=== PATIENT | female | born 1995 | race Two or more races ===

== ENCOUNTER 2019-02-23 13:28 | Emergency (ER) | payer SELFPAY ==
[2019-02-23 13:40] VITALS: BP 121/70; PULSE 71; TEMP 98.5; BMI 31.1
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
== END 2019-02-23 14:03 | disposition home or self-care (01) ==
LOC: JERFT 13:28
DX: T14.8XXA Other injury of unspecified body region, initial encounter (principal); Y04.2XXA Assault by strike against or bumped into by another person, initial encounter; Y93.89 Activity, other specified; Y92.810 Car as the place of occurrence of the external cause; Y07.03 Male partner, perpetrator of maltreatment and neglect
CPT/HCPCS: 99281-25

== ENCOUNTER 2019-09-10 17:29 | Emergency (ER) | payer OTHER ==
[2019-09-10 17:38] VITALS: TEMP 98.2; BMI 28.7
[2019-09-10] MEDS ORDERED: ACETAMINOPHEN 325 MG TABLET (FP) PO ONE (18:15)
[2019-09-10] MEDS ORDERED: ACETAMINOPHEN 325 MG TABLET (FP) ONE (18:17)
--- NOTE | 2019-09-10 18:17 | PDOC ---
History of Present Illness - General Chief Complaint: Injury Stated Complaint: INJURY Time Seen by Provider: 09/10/19 18:06 History Source: Patient Exam Limitations: No Limitations - History of Present Illness Initial Comments: 09/10/19 20:11 Chief complaint: Left leg pain Patient 23-year-old female no significant medical problems but is on control, Aviane for a few months who states that she has left leg pain that started 2 days ago. Patient states it is very uncomfortable. No fever, no shortness of breath, no chest pain. 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 No other travel, no family history of DVT or PE. GENERAL/CONSTITUTIONAL: No fever, weakness. dizziness HEAD, EYES, EARS, NOSE AND THROAT: No change in vision. No ear pain or discharge. No sore throat. CARDIOVASCULAR: No chest pain RESPIRATORY: No shortness of breath or cough GASTROINTESTINAL: No pain, nausea, vomiting, diarrhea or constipation GENITOURINARY: No dysuria MUSCULOSKELETAL: No neck or back pain SKIN: No rash NEUROLOGIC: No headache, vertigo, loss of consciousness, or loss of sensation. GENERAL: The patient is awake, alert, and fully oriented, in no acute distress. HEAD: Normal with no signs of trauma. EYES: Pupils equal, round and reactive to light, sclera anicteric, conjunctiva clear. ENT: pharynx: no erythema, no exudate, uvula midline NECK: supple CHEST: clear, nontender, rr ABD: soft, nontender BACK: no tenderness or signs of injury EXTREMITIES: Left leg with tenderness to the popliteal area and a little bit lower, minimal swelling, no ecchymosis, no erythema, no swelling to the foot or thigh, neurovascular intact. Normal range of motion, no edema. NEUROLOGICAL: Normal speech, cranial nerves II through XII grossly intact, no gross focal abnormalities SKIN: Warm, Dry Past History - Past Medical History Allergies/Adverse Reactions: Allergies Allergy/AdvReac Type Severity Reaction Status Date / Time cephalexin [From Keflex] Allergy Severe Rash Verified 09/10/19 17:35 Home Medications: Ambulatory Orders Apixaban [Eliquis] 10 mg PO BID #70 tablet 09/10/19 COPD: No - Psycho Social/Smoking Cessation Hx Smoking History: Unknown if ever smoked Have you smoked in the past 12 months: No Hx Alcohol Use: No Drug/Substance Use Hx: Yes *Physical Exam - Vital Signs Last Vital Signs Temp Pulse Resp BP Pulse Ox 98.2 F 80 18 108/51 L 99 09/10/19 17:35 09/10/19 17:35 09/10/19 17:35 09/10/19 17:35 09/10/19 17:35 Medical Decision Making - Medical Decision Making 23-year-old female with history of OCP use with 2 days of left lower leg pain, uncomfortable, atraumatic. 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 No chest pain or shortness of breath, no fever, patient is not tachypneic, tachycardic or hypoxic. Patient does smoke, marijuana 3 times a day. Patient will get ultrasound and x-ray and be reassessed 09/10/19 20:04 geotechnical engineer called to tell me that there was a gastrocnemius vein DVT, discussed with Dr. Hanna, who confirmed there was a small amount of nonocclusive clot in the left gastrocnemius vein. Discussed with Dr. Tatum, call placed to Dr. Chavez, vascular at this time xray negative 09/10/19 21:[address] Chavez, agrees with plan, will put on Eliquis or Xarelto. Discussed with Kimber. They cannot tell how much the drug will cost until we send the prescription. Prescription sent. Dr. Chavez will see her next week. 09/10/19 21:33 Discussed with Kimber, able to put through starter pack without preauthorization. Patient was given first dose in the ER. Of 10 mg. Of Eliquis. 09/10/19 22:01 Discharge - Discharge Information Problems reviewed: Yes Clinical Impression/Diagnosis: DVT (deep venous thrombosis) Qualifiers: DVT location: lower extremity Affected thrombotic vein of extremity: calf muscle vein Chronicity: acute Laterality: left Qualified Code(s): I82.462 - Acute embolism and thrombosis of left calf muscular vein Condition: Stable Disposition: HOME - Admission No - Additional Discharge Information Prescriptions: Apixaban [Eliquis] 10 mg PO BID #70 tablet - Follow up/Referral Referrals: Terrence Chavez DO [Staff Physician] - - Patient Discharge Instructions Patient Printed Discharge Instructions: Deep Vein Thrombosis Additional Instructions: Do not take any control, starting now. Do not take any Motrin, Advil, ibuprofen, Aleve or aspirin or any related products these will cause excessive bleeding. The medicine Eliquis you are going to take is a blood thinner. You were given the first dose of 10 mg here. When you get the starter pack tonight take out the first 10 mg dose and discarded. Start with the second dose tomorrow so that you will be taking 10 mg for a total of 7 days. You will then follow the rest of the instructions on the starter pack. Return to the ER if fever, chest pain, shortness of breath or worsening symptoms any signs of bleeding. You need to be careful about injuring yourself as this can cause increased bleeding especially if you hit your head or have severe trauma. You will need to see Dr. Chavez next week, call the office on Thursday to make an appointment. No smoking - Post Discharge Activity
[2019-09-10] MEDS ORDERED: APIXABAN 5 MG TABLET ONE (21:30)
[2019-09-10 21:33] VITALS: BP 106/68; PULSE 68
[2019-09-10] MEDS ORDERED: APIXABAN 5 MG TABLET PO ONE (21:33)
== END 2019-09-10 21:41 | disposition home or self-care (01) ==
LOC: JERFT 17:29
DX: I82.462 Acute embolism and thrombosis of left calf muscular vein (principal); Z79.3 Long term (current) use of hormonal contraceptives; Z88.1 Allergy status to other antibiotic agents
CPT/HCPCS: 73590-TC-LT-FY; 93971-TC; 99281-25

== ENCOUNTER 2019-09-11 17:48 | Emergency (ER) | payer OTHER ==
[2019-09-11 18:08] VITALS: BMI 29.2
[2019-09-11 19:07] LABS: EOS % 1.1 % (0-4.5); HEMATOCRIT 33.5 % (32.4-45.2); HEMOGLOBIN 11.3 GM/dL (10.7-15.3); LYMPH % 17.6 % (8-40); MCH 27.9 pg (25.7-33.7); MCHC 33.7 g/dl (32.0-36.0); MEAN CELL VOLUME 82.7 fl (80-96); MEAN PLT VOLUME 7.3 fl (7.5-11.1); MONO % 6.2 % (3.8-10.2); NEUT % 74.1 % (42.8-82.8); PLATELET COUNT 319 K/MM3 (134-434); RBC 4.05 M/mm3 (3.60-5.2); RDW 13.2 % (11.6-15.6); WHITE BLOOD COUNT 7.5 K/mm3 (4.0-10.0)
--- NOTE | 2019-09-11 19:19 | PDOC ---
History of Present Illness - General Chief Complaint: Shortness of Breath Stated Complaint: SOB Time Seen by Provider: 09/11/19 18:01 - History of Present Illness Initial Comments: Rhea Thomas is a 23 y/o female who was seen here yesterday for DVT of the LLE. She was started on eliquis 10 mg QD, which she took yesterday and today. She is on OCPs but stopped them yesterday. Daily smoker. No recent travel or immobilization. No hx of clotting disorders. In the shower today she felt suddenly short of breath, felt like she was about to pass out, and called EMS. She was tachypneic, but normal rate, saturating at 95% on room air and 100% on 2L. Denies chest pain. Reports pain in the left leg behind her knee. Denies abdominal pain. Denies headache. Denies fever/chills. Denies dysuria/diarrhea. Past History - Past Medical History Allergies/Adverse Reactions: Allergies Allergy/AdvReac Type Severity Reaction Status Date / Time cephalexin [From Keflex] Allergy Severe Rash Verified 09/11/19 17:51 Home Medications: Ambulatory Orders Apixaban [Eliquis] 10 mg PO BID #70 tablet 09/10/19 COPD: No Other medical history: dvt - Psycho Social/Smoking Cessation Hx Smoking History: Current some day smoker Have you smoked in the past 12 months: No Information on smoking cessation initiated: No Hx Alcohol Use: No Drug/Substance Use Hx: Yes Review of Systems - Review of Systems Comments:: GENERAL/CONSTITUTIONAL: No fever or chills. No weakness._ HEAD, EYES, EARS, NOSE AND THROAT: No change in vision. No change in hearing. No sore throat._ CARDIOVASCULAR: Reports shortness of breath. Denies chest pain. RESPIRATORY: Denies cough, hemoptysis_ GASTROINTESTINAL: No nausea, vomiting, diarrhea or constipation._ GENITOURINARY: No dysuria, frequency, or change in urination._ MUSCULOSKELETAL: No joint or muscle swelling or pain. No neck or back pain._ SKIN: No rash_ NEUROLOGIC: Reports lightheadedness. No headache, vertigo, loss of consciousness , or change in strength/sensation._ ENDOCRINE: No increased thirst. No abnormal weight change_ HEMATOLOGIC/LYMPHATIC: No anemia, easy bleeding. ALLERGIC/IMMUNOLOGIC: No hives or skin allergy._ *Physical Exam - Vital Signs Last Vital Signs Temp Pulse Resp BP Pulse Ox 98.2 F 70 16 92/56 L 95 09/11/19 17:52 09/11/19 17:52 09/11/19 17:52 09/11/19 17:52 09/11/19 17:52 - Physical Exam GENERAL: Awake, alert, and oriented to person/place/time, in no acute distress_ HEAD: No signs of trauma, normoc ephalic, atraumatic _ EYES: PERRLA, EOMI, sclera anicteric, conjunctiva clear_ ENT: Hearing grossly normal, nares patent, oropharynx clear without exudates. No uvular deviation. Moist mucosa_ NECK: Normal ROM, supple, no lymphadenopathy, JVD, or masses_ LUNGS: No distress, speaks in full sentences, clear to auscultation bilaterally _ HEART: Regular rate and rhythm, normal S1 and S2, no murmurs appreciated, peripheral pulses normal and equal bilaterally._ ABDOMEN: Soft, nontender, normoactive bowel sounds. No guarding, no rebound. No masses_ EXTREMITIES: Normal inspection, Normal range of motion, no edema. No clubbing or cyanosis. TTP left posterior knee. NEUROLOGICAL: Cranial nerves II through XII grossly intact. Normal speech, normal gait, no focal sensorimotor deficits _ SKIN: Warm, Dry, normal turgor, no rashes or lesions noted_ ED Treatment Course - LABORATORY CBC & Chemistry Diagram: 09/11/19 18:59 09/11/19 18:59 Medical Decision Making - Medical Decision Making 09/11/19 18:17 23F hx of DVT yesterday presenting with sudden onset of shortness of breath. Wells 7.5. -cbc, cmp -cxr, ekg, trop -cta chest 09/11/19 18:45 Bedside echo shows no signs of right heart strain. 09/11/19 19:29 EKG shows NSR, 65 bpm, no ST elevation/depression, QTc 388. 09/11/19 19:45 Pt signed out to Dr. Prado. Discharge - Discharge Information Problems reviewed: Yes Clinical Impression/Diagnosis: Shortness of breath DVT (deep venous thrombosis) Qualifiers: DVT location: lower extremity Affected thrombotic vein of extremity: unspecified vein of extremity Chronicity: acute Laterality: left Qualified Code( s): I82.402 - Acute embolism and thrombosis of unspecified deep veins of left lower extremity Condition: Improved Disposition: HOME - Admission No - Follow up/Referral Referrals: Terrence Chavez DO [Staff Physician] - - Patient Discharge Instructions Patient Printed Discharge Instructions: DI for Deep Vein Thrombosis Additional Instructions: You were seen and evaluated in the [facility] ED for shortness of breath. You workup was negative for Pulmonary Embolism. Please continue taking your Eliquis as prescribed. Follow up with your primary care doctor in the next 2-3 days for continued care. If you experience any new, worsening, or concerning symptoms, including but not limited to: severe shortness of breath, chest pain, difficulty breathing, or any other concerns, please return to the emergency department. Thank you for coming in. - Post Discharge Activity
--- NOTE | 2019-09-11 19:28 | PDOC ---
Documentation entered by Lupis Friedman SCRIBE, acting as scribe for Lalitha Hu MD. Lalitha Hu MD: This documentation has been prepared by the scribe, Lupis Friedman SCRIBE, under my direction and personally reviewed by me in its entirety. I confirm that the documentation accurately reflects all work, treatment, procedures, and medical decision making performed by me. Attending Attestation - Resident Resident Name: Gamaliel Sharma - ED Attending Attestation I have performed the following: I have examined & evaluated the patient, The case was reviewed & discussed with the resident, I agree w/resident's findings & plan, Exceptions are as noted - HPI HPI: 09/11/19 19:27 23yoF Dx yesterda w/ DVT, started on Elequis, now presnets w/ acute onset of chest pain and sob while showering this evening. Has taken 2 doses of elequis thusfar. No other acute complaints. - Physicial Exam PE: 09/11/19 19:27 NAD RRR CTABL soft NTnD A&O x 3 - Medical Decision Making 09/11/19 19:28 23yoF w/ new dx of DVT yesterday presnets w/ acute cp/sob concenring for PE. - labs - CTA r/o PE - dispo per results.
[2019-09-11 19:39] LABS: ALK PHOS 67 U/L (45-117); ANION GAP 4 MMOL/L (8-16); BILIRUBIN,TOTAL 0.2 mg/dL (0.2-1); BLOOD UREA NITROGEN 8.4 mg/dL (7-18); CALCIUM 8.4 mg/dL (8.5-10.1); CHLORIDE 108 mmol/L (98-107); CO2 27 mmol/L (21-32); CREATININE 0.9 mg/dL (0.55-1.3); GLUCOSE,RANDOM 83 mg/dL (74-106); SGOT/AST 15 U/L (15-37); SGPT/ALT 15 U/L (13-61); SODIUM 140 mmol/L (136-145); TOT PROT 6.6 g/dl (6.4-8.2)
--- NOTE | 2019-09-11 19:52 | PDOC ---
*Physical Exam - Vital Signs Last Vital Signs Temp Pulse Resp BP Pulse Ox 98.2 F 70 16 92/56 L 95 09/11/19 17:52 09/11/19 17:52 09/11/19 17:52 09/11/19 17:52 09/11/19 17:52 ED Treatment Course - LABORATORY CBC & Chemistry Diagram: 09/11/19 18:59 09/11/19 18:59 - ADDITIONAL ORDERS Additional order review: Laboratory Results 09/11/19 18:59 Sodium 140 Potassium 4.0 Chloride 108 H Carbon Dioxide 27 Anion Gap 4 L BUN 8.4 Creatinine 0.9 Est GFR (CKD-EPI)AfAm 103.72 Est GFR (CKD-EPI)NonAf 89.49 Random Glucose 83 Calcium 8.4 L Total Bilirubin 0.2 AST 15 ALT 15 Alkaline Phosphatase 67 Creatine Kinase 37 Troponin I < 0.02 Total Protein 6.6 Albumin 3.0 L 09/11/19 18:59 RBC 4.05 MCV 82.7 MCHC 33.7 RDW 13.2 MPV 7.3 L Neutrophils % 74.1 Lymphocytes % 17.6 Monocytes % 6.2 Eosinophils % 1.1 Basophils % 1.0 Medical Decision Making - Medical Decision Making 09/11/19 19:51 Sign out received from Dr. Sharma 23 y/o female seen here yesterday for DVT of the LLE. Started on eliquis 10 mg QD, which she took yesterday and today. OCPs discontinued yesterday. Daily smoker. Today suddenly short of breath, presyncopal, called EMS. EMS: tachypneic , normal HR, sat at 95% RA and 100% 2L. Denies chest pain. Reports continued pain in the left leg behind her knee. S/p bedside ECHO without sign of right heart strain. - Follow up labs - CTPE - Disposition 09/11/19 19:55 - CBC, CMP, Troponin all within normal ranges - EKG 65bpm, NSR, normal axis, QTc 388, normal QRS width, no ST changes noted, Q wave in lead 3 - Serum Negative 09/11/19 21:39 - CTA without evidence of PE - CXR without acute chest pathology - Patient feels well, asymptomatic, comfortable going home - Return precautions discussed, patient expresses understanding Dispo: Home Discharge - Discharge Information Problems reviewed: Yes Clinical Impression/Diagnosis: Shortness of breath DVT (deep venous thrombosis) Qualifiers: DVT location: lower extremity Affected thrombotic vein of extremity: unspecified vein of extremity Chronicity: acute Laterality: left Qualified Code( s): I82.402 - Acute embolism and thrombosis of unspecified deep veins of left lower extremity Condition: Improved Disposition: HOME - Admission No - Follow up/Referral Referrals: Terrence Chavez DO [Staff Physician] - - Patient Discharge Instructions Patient Printed Discharge Instructions: DI for Deep Vein Thrombosis Additional Instructions: You were seen and evaluated in the [facility] ED for shortness of breath. You workup was negative for Pulmonary Embolism. Please continue taking your Eliquis as prescribed. Follow up with your primary care doctor in the next 2-3 days for continued care. If you experience any new, worsening, or concerning symptoms, including but not limited to: severe shortness of breath, chest pain, difficulty breathing, or any other concerns, please return to the emergency department. Thank you for coming in. - Post Discharge Activity
[2019-09-11 21:53] VITALS: BP 94/53; PULSE 69; TEMP 97.8
--- NOTE | 2019-09-12 09:33 | EKG ---
Test Reason : Blood Pressure : / mmHG Vent. Rate : 065 BPM Atrial Rate : 065 BPM P-R Int : 160 ms QRS Dur : 080 ms QT Int : 374 ms P-R-T Axes : 011 056 027 degrees QTc Int : 388 ms NORMAL SINUS RHYTHM NORMAL ECG NO PREVIOUS ECGS AVAILABLE Confirmed by Shimon Gudino ([id number]) on 09/12/2019 9:32:57 AM Referred By: Confirmed By:Shimon Gudino
== END 2019-09-11 21:53 | disposition home or self-care (01) ==
LOC: SUPCPDRO 17:48 → JER 17:48
PROC: B246ZZZ Ultrasonography of Right and Left Heart (ICD-10-PCS; principal; 2019-09-11)
DX: R06.02 Shortness of breath (principal); I82.402 Acute embolism and thrombosis of unspecified deep veins of left lower extremity; Z79.01 Long term (current) use of anticoagulants; Z88.1 Allergy status to other antibiotic agents
CPT/HCPCS: 36415; 71045-TC-FY; 71275-TC; 80053; 82550; 84484; 84703; 85025; 93005; 93010; 93308; 99285-25; Q9967